=== PATIENT | female | born 1985 | race Caucasian/White ===

== ENCOUNTER 2017-09-24 20:21 | Emergency (ER) | payer OTHER ==
[~2017-09-24] VITALS: Ht 170.2 cm; Wt 117.9 kg
[2017-09-24 20:26] VITALS: BP_SYST 160
[2017-09-24 20:47] LABS: BILIRUBIN,URINE NEGATIVE (NEGATIVE); BLOOD, URINE 3+ (NEGATIVE); CLARITY/URINE SL CLOUDY (CLEAR); COLOR,URINE RED (YELLOW); GLUCOSE,URINE NEGATIVE (NEGATIVE); KETONES,URINE NEGATIVE (NEGATIVE); NITRITE, URINE NEGATIVE (NEGATIVE); PROTEIN URINE 2+ (NEGATIVE); UROBILINOGEN,URINE 0.2 (0.2-1.0)
[2017-09-24 20:48] LABS: LEUKOCYTE ESTERASE ,URINE 2+ (NEGATIVE)
[2017-09-24 20:49] LABS: BACTERIA,URINE FEW /HPF (None Seen); MUCUS,URINE None Seen /LPF (None Seen); RBC,URINE >100 /HPF (0-3); WBC,URINE 20-50 /HPF (0-3)
[2017-09-24] MEDS ORDERED: IBUPROFEN 800 MG TABLET PO ONE (21:00)
[2017-09-24] MEDS ORDERED: PHENAZOPYRIDINE HCL 100 MG TABLET PO ONE (21:00)
[2017-09-24] MEDS ORDERED: NITROFURANTOIN MONOHYD/M-CRYST 100 MG CAPSULE PO ONE (21:15)
[2017-09-24 21:20] VITALS: BP_SYST 131
== END 2017-09-24 21:20 | disposition home or self-care (01) ==
LOC: SED 20:21
DX: N39.0 Urinary tract infection, site not specified (principal); R03.0 Elevated blood-pressure reading, without diagnosis of hypertension
CPT/HCPCS: 81000-TC; 81025; 99284

== ENCOUNTER 2018-01-06 04:21 | Emergency (ER) | payer OTHER ==
[~2018-01-06] VITALS: Ht 167.6 cm; Wt 117.9 kg
[2018-01-06 04:27] VITALS: BP_SYST 143
[2018-01-06 04:53] LABS: BILIRUBIN,URINE 1+ (NEGATIVE); BLOOD, URINE 3+ (NEGATIVE); CLARITY/URINE CLOUDY (CLEAR); COLOR,URINE RED (YELLOW); GLUCOSE,URINE NEGATIVE (NEGATIVE); KETONES,URINE 1+ (NEGATIVE); LEUKOCYTE ESTERASE ,URINE 2+ (NEGATIVE); NITRITE, URINE POSITIVE (NEGATIVE); PROTEIN URINE 3+ (NEGATIVE)
[2018-01-06 05:05] LABS: BACTERIA,URINE MODERATE /HPF (None Seen); RBC,URINE >100 /HPF (0-3); WBC,URINE >100 /HPF (0-3)
[2018-01-06] MEDS ORDERED: KETOROLAC TROMETHAMINE 60 MG/2 ML VIAL IM ONE (05:15)
[2018-01-06 05:24] VITALS: BP_SYST 143
== END 2018-01-06 05:24 | disposition home or self-care (01) ==
LOC: SED 04:21
DX: N39.0 Urinary tract infection, site not specified (principal)
CPT/HCPCS: 81000-TC; 81025; 87086; 87186-TC; 99284; J1885

== ENCOUNTER 2018-11-15 10:36 | Emergency (ER) | payer OTHER ==
[~2018-11-15] VITALS: Ht 167.6 cm; Wt 122.5 kg
[2018-11-15 11:17] VITALS: BP_SYST 162
[2018-11-15] MEDS ORDERED: NACL 0.9% 1,000 ML IV ONE (11:51)
--- NOTE | 2018-11-15 11:51 | NUR ---
Pt LWBS, told the admitting ladies that she will [email or web address] leaving. Dr Reyes is aware
[2018-11-15] MEDS ORDERED: ONDANSETRON HCL 4 MG/2 ML VIAL IVP ONE (12:00)
== END 2018-11-15 11:51 | disposition left against medical advice (07) ==
LOC: SED 10:36
DX: R10.9 Unspecified abdominal pain (principal); Z53.21 Procedure and treatment not carried out due to patient leaving prior to being seen by health care provider
CPT/HCPCS: 99281